=== PATIENT | female | born 1995 | race Caucasian/White ===

== ENCOUNTER 2017-10-29 02:49 | Emergency (ER) | payer OTHER ==
[~2017-10-29] VITALS: Ht 167.6 cm; Wt 63.5 kg
[~2017-10-29 02:49] MED LIST: ADDERALL 20 MG20 M1; CIPRODEX OTIC7.5 ML OTIC; HYDROCODON-ACE1 EAC7 PO; IBUPROFEN 800800 MG PO; NORCO 5-325 TA1 EAC1 PO; PRAZOSIN HCL2 MG PO; PROAIR HFA8.5 GM INH; SEROQUEL 25 MG25 M1 PO; TAMIFLU75 MG PO; TESSALON PERLE100 MG PO; TRILEPTAL300 MG PO; TRIPLE ANTIBIOT28 G1 TP
[2017-10-29 04:00] VITALS: BP 99/52
== END 2017-10-29 04:00 | disposition home or self-care (01) ==
LOC: M.ERS 02:49
DX: K59.00 Constipation, unspecified (principal); F31.9 Bipolar disorder, unspecified; F17.210 Nicotine dependence, cigarettes, uncomplicated; Z88.0 Allergy status to penicillin

== ENCOUNTER 2018-02-28 21:46 | Emergency (ER) | payer OTHER ==
[~2018-02-28] VITALS: Ht 167.6 cm; Wt 65.8 kg
[2018-02-28 21:47] VITALS: BP 135/89
[2018-02-28] MEDS ORDERED: NYSTATIN100000 UNI PO (21:51)
[2018-02-28] MEDS ORDERED: HYDROCODONE-ACE15 ML PO (21:55)
[2018-02-28] MEDS ORDERED: ACYCLOVIR 400400 MG PO (21:55)
[2018-02-28] MEDS ORDERED: LIDOCAINE VISC100 ML PO (21:59)
== END 2018-02-28 22:09 | disposition home or self-care (01) ==
LOC: M.ERS 21:46
DX: B37.0 Candidal stomatitis (principal); F31.9 Bipolar disorder, unspecified; F17.210 Nicotine dependence, cigarettes, uncomplicated; Z88.0 Allergy status to penicillin